=== PATIENT | female | born 1970 | race Asian ===

== ENCOUNTER → 2019-04-12 | Outpatient (CLI) | payer OTHER ==
[~2019-04-12] VITALS: Ht 157.5 cm; Wt 102.1 kg
[~2019-04-12] MED LIST: ADULT LOW DOSE81 MG PO; COZAAR 25 MG TA25 M1 PO; FLECAINIDE ACET50 M1 PO; FOLGARD TABLET1 EAC1 PO; LIORESAL 10 MG10 MG PO; LIPITOR10 MG PO; LOPRESSOR25 PO; METOPROLOL TART25 MG PERTUBE; TOPROL XL25 MG PO; TRAZODONE HCL50 MG PO
--- NOTE | ~2019-04-12 | P ---
[facility] [place] [address] PROCEDURE REPORT Name: DIANDRADILMAShoshana VALENTE EID Room #: REG ONEL MimsNissaBaldemarNissa#: [id number] Admission: 04/12/19 ������������������ Attend Phys: Stuart Love MD Discharge: ������������������ Date of : 68 Report #: [id number] THIS REPORT FOR: //name// CC: Stuart Baez DATE OF SERVICE: 04/12/2019 PREOPERATIVE DIAGNOSIS: Supraventricular tachycardia. POSTOPERATIVE DIAGNOSIS: Typical atrioventricular yunier reentrant tachycardia. PROCEDURES PERFORMED: 1. SVT ablation, CPT code 18406. 2. EP with left atrial pacing and recording, CPT code 52903. 3. Program stimulation pacing after IV drug infusion, CPT code 99460. 4. 3D mapping, CPT code 23715. ANESTHESIA: The patient underwent MAC anesthesia with no anesthesia related complications. DESCRIPTION OF PROCEDURE: The patient underwent informed consent. We discussed the details of the procedure including the risks, which include but not limited to bleeding, vascular damage, cardiac perforation, stroke, IA as well as damage to north fork conduction system. She understood these risks and is willing to proceed. The patient was brought to the EP laboratory in a fasting and unsedated state. I obtained access to the right femoral vein x 4. In the right femoral vein, I placed an 8, two 6 and a 7-Nepalese short sheath using the modified Seldinger technique. Next, under fluoroscopy, I placed 3 quadripolar catheters at the HRA, His, and RV positions and a Decapolar catheter in the coronary sinus, which was utilized for left atrial pacing and recording. At baseline, the patient was in sinus rhythm with sinus cycle length of 690 milliseconds, SC interval 175 milliseconds, QRS duration 75 milliseconds, QT interval 350 milliseconds, AH interval 105 milliseconds, HV interval 49 milliseconds. Atrial burst pacing was performed and the patient went directly into SVT with a tachycardia cycle length of 380 milliseconds, a septal VA time of 45 milliseconds. Ventricular entrainment was performed and VAHV response was demonstrated several times. I was able to terminate the tachycardia and easily induce this with either atrial burst pacing or single atrial extrastimuli. Next, ventricular pacing was performed and VA block was noted at 290 milliseconds. Ventricular ERP was noted at 200 milliseconds at a [address] cycle length with conduction that was both midline and decremental. As such, a diagnosis of typical AV yunier reentrant tachycardia was [facility] [address] [place] [address] PROCEDURE REPORT Name: KALEYDILMAShoshana VALENTE EID Room #: REG CLI [facility]#: [id number] Admission: 04/12/19 ������������������ Attend Phys: Stuart Love MD Discharge: ������������������ Date of : 68 Report #: [id number] made. 3D MAPPING AND ABLATION: Next, I removed my HRA catheter and short sheath and placed an SR0 sheath and a 4-mm Biosense Ayala ablation catheter into the right atrium. A detailed 3D geometry of the right atrium was created with specific emphasis of the His bundle region, slow pathway region and coronary sinus ostium. Ablation was performed at 50 iniguez and 55 degrees. My first 2-3 diego resulted in no junctionals. I then performed several ablation lesions where I would get junctionals and when I would get junctionals the ablation catheter would slip into the coronary sinus and had come off. I performed a total of 7 ablation lesions in this region where I would get junctionals for about 10-20 seconds and then fall into the coronary sinus. My last 2 diego resulted in no further junctionals and therefore testing was performed. Of note, there was never compromise to the AV yunier conduction. POST-ABLATION FINDINGS: Post-ablation, the patient was in sinus rhythm. Aggressive atrial burst pacing was performed and AV block was now noted at 330 milliseconds and there was no longer any crossover or evidence of a long AH interval. Atrial ERP was noted at 250 milliseconds at a [address] cycle length. There were single AV yunier echoes, but no inducible tachycardia. Isoproterenol infusion was initiated at 2 mcg per minute and she did have a robust response to this. AV block was now less than 240 milliseconds. Atrial ERP was noted at 220 milliseconds at [address] cycle length. I did not see any echoes nor was there any SVT. The isoproterenol was turned off. We continued testing and the patient was now non-inducible. Post-ablation, the patient was in sinus rhythm with sinus cycle length of 650 milliseconds, SC interval 190 milliseconds, QRS duration 78 milliseconds, QT interval 330 milliseconds, AH interval 100 milliseconds, and HV interval 49 milliseconds. As such, all catheters and sheaths were pulled. Hemostasis was obtained and the patient awoke neurologically and hemodynamically intact. CONCLUSIONS: 1. Successful ablation of typical AV yunier reentrant tachycardia. 2. Normal SA yuiner function. 3. Normal AV yunier function. 4. Normal His-Purkinje function. 5. No other inducible arrhythmias on or off isoproterenol. ��������������������������������������������� ���������������������������������������� By: ��������������������������������������������� [id number] Stuart Love MD /nt
[2019-04-12 09:58] VITALS: BP 126/79
[2019-04-12 10:32] LABS: BASOPHILS 1.1 % (0.0-2.0); EOSINOPHILS 4.2 % (0.0-3.0); HEMATOCRIT 33.1 % (37.0-47.0); HEMOGLOBIN 10.5 gm/dL (12.0-15.0); LYMPHOCYTES 27.3 % (24.0-44.0); MCH 22.7 pg (26.0-34.0); MCHC 31.8 g/dL (28.0-37.0); MCV 71.4 fL (80.0-100.0); MONOCYTES 9.7 % (1.0-8.0); PLATELET COUNT 461 thou/uL (150-400); POLYS 57.7 % (36.0-66.0); RBC 4.64 mil/uL (4.20-5.00); RDW 17.2 % (10.5-14.5); WBC 5.2 thou/uL (4.0-11.0)
[2019-04-12 10:42] LABS: CALCIUM 9.1 mg/dL (8.5-10.1); CREATININE 0.7 mg/dL (0.6-1.0); POTASSIUM 3.9 mmol/L (3.5-5.1)
[2019-04-12 10:46] LABS: APTT 29.4 Seconds (24.5-32.8); INR 1.1; PROTIME 11.1 Seconds (9.3-11.4)
[2019-04-12 10:48] LABS: ALBUMIN 3.3 g/dL (3.4-5.0); TOTAL BILIRUBIN 0.5 mg/dL (<0.1-1.0); TOTAL PROTEIN 8.2 g/dL (6.4-8.2)
[2019-04-12 11:20] LABS: ANISOCYTOSIS 1+; HYPOCHROMASIA 1+; MICROCYTES 3+
== END | disposition home or self-care (01) ==
LOC: CATH 09:19
PROVIDERS: Internal Medicine Cardiovascular Disease
DX: I47.1 Supraventricular tachycardia (principal); I11.0 Hypertensive heart disease with heart failure; I50.30 Unspecified diastolic (congestive) heart failure; I48.91 Unspecified atrial fibrillation; Z98.890 Other specified postprocedural states; Z79.899 Other long term (current) drug therapy; Z88.8 Allergy status to other drugs, medicaments and biological substances; Z79.82 Long term (current) use of aspirin; Z79.01 Long term (current) use of anticoagulants
CPT/HCPCS: 62110; 62900; 70005